=== PATIENT | male | born 1945 | race Caucasian/White ===

== ENCOUNTER 2023-03-06 13:45 | Outpatient (REF) | payer OTHER, SELFPAY ==
[2023-03-06 14:18] LABS: C Reactive Protein* 0.9 mg/dL (0.5-1.0)
[2023-03-06 16:52] LABS: Erythrocyte SedimentationRate* 12 mm/hr (2-15)
== END 2023-03-06 13:46 | disposition home or self-care (01) ==
LOC: NPINS 13:45
PROVIDERS: PCP Physician Assistant Surgical
DX: G89.18 Other acute postprocedural pain (principal); M25.569 Pain in unspecified knee; Z47.1 Aftercare following joint replacement surgery
CPT/HCPCS: 85651; 86140

== ENCOUNTER 2023-10-22 13:54 | Outpatient (CLI) | payer OTHER, SELFPAY | END 2023-10-22 13:55 | disposition home or self-care (01) | PROVIDERS: PCP Emergency Medicine; Visit Provider Emergency Medicine | DX: I10 Essential (primary) hypertension (principal); E78.5 Hyperlipidemia, unspecified; M10.9 Gout, unspecified; E53.8 Deficiency of other specified B group vitamins; Z12.5 Encounter for screening for malignant neoplasm of prostate | CPT/HCPCS: 80053; 80061; 82607; 84153; 84550 ==

== ENCOUNTER 2023-11-26 13:14 | Outpatient (CLI) | payer MEDICAID, SELFPAY | END 2023-11-26 13:15 | disposition home or self-care (01) | LOC: LKVREF 13:15 | PROVIDERS: PCP Emergency Medicine; Visit Provider Emergency Medicine | DX: I10 Essential (primary) hypertension (principal) | CPT/HCPCS: 80048 ==